=== PATIENT | female | born 1975 | race Caucasian/White ===

== ENCOUNTER 2019-04-29 12:21 | Emergency (ER) | payer BC, SELFPAY ==
[2019-04-29 12:27] VITALS: BP 133/71; PULSE 90; RESP 18; TEMP 36.7; O2SAT 100
[2019-04-29] MEDS: Acetaminophen 500 MG TAB 1000 MG PO (13:12)
[2019-04-29 13:32] LABS: Abs Immature Grans 0.01 k/cumm (0.0-0.09); Absolute Basophil Count 0.03 k/cumm (0.0-0.2); Absolute Eosinophil Count 0.31 k/cumm (0.0-0.7); Absolute Lymphocyte Count 1.81 k/cumm (1.2-3.4); Absolute Monocyte Count 0.68 k/cumm (0.11-0.7); Absolute Neutrophil Count 4.21 k/cumm (1.2-6.7); Basophils % 0.4; Eosinophils % 4.4; HCT 35.7 % (36.0-46.0); HGB 11.7 g/dL (12.0-15.5); Immature Grans % 0.1; Lymphocytes % 25.7; Mean Corp. HGB Concentration 32.8 g/dL (32.0-36.0); Mean Corpuscular Hemoglobin 29.9 pg (27.0-33.0); Mean Corpuscular Volume 91.3 fL (80-95); Mean Platelet Volume 9.3 fL (8.0-11.0); Monocytes % 9.6; Neutrophils % 59.8; Platelet Count 261 x1000/uL (130-400); RBC 3.91 m/cumm (4.00-5.20); RBC Distribution Width 12.7 % (11.7-14.6); White Blood Cell Count 7.05 k/cumm (4.4-10.8)
--- NOTE | 2019-04-29 13:35 | DI.RAD_ITS ---
EXAM: XR CHEST 2V PA LATERAL INDICATION: right back pain r/o pneumonia.. COMPARISON: No exams were available for comparison TECHNIQUE: 2D digital imaging was performed. FINDINGS: Heart size and pulmonary vasculature are within normal limits. The lungs are clear. No effusion or pneumothorax is identified. The bones show no acute abnormality. IMPRESSION: No acute pulmonary process.
[2019-04-29 13:43] LABS: ALT 16 U/L (14-59); AST 10 U/L (15-37); Albumin 3.4 g/dL (3.4-5.0); Alkaline Phosphatase 70 U/L (46-116); Anion Gap 7.8 mmol/L (3-11); BUN 9 mg/dL (7-18); Bilirubin, Total 0.2 mg/dL (0.2-1.0); CO2 28.2 mmol/L (21.0-32.0); CREATININE 0.61 mg/dL (0.55-1.02); Calcium 8.6 mg/dL (8.5-10.1); Chloride 106 mmol/L (98-107); Glucose 94 mg/dL (70-100); Potassium 3.7 mmol/L (3.5-5.1); Sodium 142 mmol/L (136-145); Total Protein 7.4 g/dL (6.4-8.2)
[2019-04-29 13:44] LABS: Bilirubin Negative (Negative); Blood Trace-intact (Negative); Clarity Clear (Clear); Glucose Negative (Negative); Ketones Negative (Negative); Leukocyte Esterase Trace (Negative); Nitrite Negative (Negative); Specific Gravity 1.025 (1.005-1.025); Urobilinogen 0.2 EU/dL (Up TO 0.2); pH 5.5 (5-8)
[2019-04-29 14:01] LABS: D-Dimer 228 ng/mlFEU (<500)
--- NOTE | 2019-04-29 14:10 | DI.VRAD_ITS ---
PROCEDURE INFORMATION: Exam: XR Chest, 2 Views Exam date and time: 04/29/2019 1:33 PM Clinical history: 43 years old, female; Patient HX: Right back pain R/O pneumonia TECHNIQUE: Imaging protocol: XR of the chest Views: 2 views. COMPARISON: No relevant prior studies available. FINDINGS: Lungs: Unremarkable. No mass, infiltrate or consolidation. Pleural space: Unremarkable. No pleural effusion. No pneumothorax. Heart/Mediastinum: Unremarkable. No cardiomegaly. Bones/joints: Unremarkable. IMPRESSION: Negative chest exam. Dictated and Authenticated by: Ariana Rasmussen MD. Ordering:SONALI Nowak MD
[2019-04-29 14:17] LABS: Bacteria Few HPF (Negative); C & S Indicated? No/Sq. Contamination; Casts Negative LPF (Negative); Crystals Few Amorphous HPF (Negative); Epithelial Cells Many HPF (Negative); Mucus Trace (Negative)
--- NOTE | 2019-04-29 15:04 | ED.GENADUL_ITS ---
Discharge Plan Disposition Patient Disposition: HOME Condition: Good Discharge Details Chief Complaint: Nk/Back Pain Clinical Impression: Back pain Primary Care Provider: Kadie Benson ED Provider: She Sifuentes Home Meds and New Rx's Prescriptions: No Action No Known Home Meds RF: 0 Discharge Instructions Instructions: Back Pain (ED) Additional Instructions: Drink plenty of fluids by mouth. Motrin or Tylenol for discomfort if needed. Consider [id number]-[id number] lidocaine 4% patches on the skin for 12 hours then remove for 12 hours before replacing a patch. Rest activities as tolerated. For worsening, increased or new symptoms consider reevaluation sooner in the emergency room. Specifically observe for any difficulty swallowing, difficulty breathing, increasing pain or increase in abdominal pain as discussed. Recheck with your primary care doctor in the next 3 to 5 days. Return if needed sooner Medical Decision Making Is a 43-year-old patient who presents to the ER for complaints of right back pain. Denies specific injury or trauma. Patient denies associated difficult to breathing shortness breath or wheezing. Patient denies ill or systemic symptoms associated specifically no nausea, vomiting diarrhea, fevers or chills. Patient eating and drink without difficulty. Patient does report pain in her right back is worse with range of motion, coughing, sneezing and swallowing. Patient has been eating without difficulty or abdominal pain. No changes in bowels. Patient is concerned as she is due to travel internationally and was concerned with onset of pain wanted evaluated prior to travel. Patient does report frequent travel and flights. Patient is not a smoker. Patient denies any dys pnea on exertion or shortness of breath but is concerned with the possibility of blood clots. On exam patient has reproducible back pain with palpation along the musculature although does also have right CVA tenderness. Denies urinary symptoms associated. On abdominal exam she does have mild right upper quadrant tenderness as well as mild suprapubic tenderness but no sharp pain with palpation. She did not note abdominal pain prior to arrival. Has no peritoneal signs and her abdomen. Plan of care includes chest x-ray to be sure there is no identifiable pneumonia, d-dimer to rule out her concern of pulmonary embolism as well as urinalysis due to the CVA tenderness. It is difficult for me to connect patient's back pain to difficulty swallowing however her pharynx appears normal her voice is normal she has no significant voice change or difficulty eating and drinking. We discussed this at length and she does not feel imaging studies are warranted at this time would prefer close observation. Patient's chest x-ray is unremarkable for any identifiable infection. D-dimer negative. Urinalysis is somewhat contaminated mild leukocyte esterase tracely positive with no associated nitrates. Discussed with patient and she would prefer urine culture versus antibiotic treatment at this time. Patient's vital signs remained stable throughout her course of treatment and evaluation in the emergency room. Given patient's complaints I feel is most reasonable to closely observe her and encouraged conservative treatments at this time. Patient agrees with plan of care. Does not feel she needs CAT scan imaging at this time which I agree with. HPI General Date/Time Provider Initiated Documentation: 04/29/19 12:40 . HPI Narrative: 43-year-old patient presents for complaints of back pain on the right behind her shoulder. Patient reports no specific injury or trauma. Patient denies any cough or difficulty breathing. Patient does report pain is worse with range of motion, deep breathing, coughing. Patient denies any dyspnea on exertion. Patient denies abdominal pain associated. No associated nausea, vomiting or diarrhea. Eating and drink without difficulty. Patient does report mild pain in her back when swallowing. No nasal congestion or upper respiratory symptoms recently. Patient does report she is concerned as she is due to get on a long flight in the next few days and was concerned as she has done lots of flying recently lots of short flights connected. Patient was somewhat concerned with the possibility of a blood clot. Denies any swelling in her legs or calf pain recently. No radiation of her back pain Related Data Home Medications Medication Instructions Recorded Confirmed Unknown [No Known Home Meds] 04/29/19 04/29/19 Allergies Allergy/AdvReac Type Severity Reaction Status Date / Time amoxicillin trihydrate Allergy Severe Hives Unverified 04/29/19 12:30 [From Augmentin] ciprofloxacin [From Cipro] Allergy Severe Hives Unverified 04/29/19 12:30 ciprofloxacin HCl Allergy Severe Hives Unverified 04/29/19 12:30 [From Cipro] potassium clavulanate Allergy Severe Hives Unverified 04/29/19 12:30 [From Augmentin] cefaclor [From Ceclor] Allergy Intermediate Hives Unverified 04/29/19 12:30 walnuts Allergy Severe Nausea Uncoded 04/29/19 12:30 General Stated Complaint: Nk/Back Pain PEREZ: 4 Review of Systems All systems reviewed & are unremarkable except as noted in HPI and below Constitutional Constitutional: Denies chills, Denies fatigue, Denies fever(s) and Denies headache(s) ENT Ears, Nose, Mouth, and Throat: Denies headache(s), Denies neck pain and Denies throat swelling Cardiovascular Cardiovascular: Denies chest pain, Denies chest pain with activity, Denies leg edema, Denies radiating jaw, neck or arm pain and Denies dyspnea on exertion Respiratory Respiratory: Denies cough, Denies dyspnea on exertion and Denies wheezing Gastrointestinal Gastrointestinal: Denies abdominal pain, Denies nausea and Denies vomiting Musculoskeletal Musculoskeletal: Reports back pain, Denies limited range of motion, Denies neck pain and Denies radiating pain into limb Neurologic Neurologic: Denies headache(s) Endocrine Endocrine: Denies fatigue Allergic/Immunologic Allergic/Immunologic: Denies throat swelling and Denies wheezing [facility] Social History Smoking/Tobacco Use Status: Never Alcohol Intake: current Alcohol Intake frequency: holidays/special occasions only Drug use: Never Substance use type: does not use Do you feel safe at home: Yes Do you feel safe in your relationship?: Yes Exam Narrative Exam Narrative: CONST: Healthy appearing patient, in no acute distress. Well hydrated. Alert and alert. HENMT: Head nomocephalic, normal to inspection. Atraumatic. Hearing grossly normal. No pharyngeal erythema. No uvula swelling. Uvula midline. EYES: General normal appearance. Alignment normal. Eyelids normal. Conjunctiva normal. NECK: Normal visual inspection. FROM. Trachea midline. No Midline tenderness. No cervical lymphadenopathy present CHEST: Normal insepection of the chest. No palpable chest pain with palpation RESP: Normal respiratory effort. Speaking full sentences. No cough. No audible wheezing. No retractions. Breath sounds are equal and full bilaterally. No rales, rhonchi or wheezing present. CARDIO: No JVD. Regular rate and rhythm. No murmurs or rubs MUSCULOSKELETAL: Normal Gait. FROM of all extremities. Back: No midline tenderness through the cervical, thoracic and lumbar spine. No obvious bruising. Mild pain with palpation along the right paraspinal area and subscapular area. This does somewhat reproduce patient's pain but not as sharply. Mild right CVA tenderness with palpation. No left CVA tenderness. GI: Soft, minimal right upper quadrant tenderness palpation. No epigastric pain with palpation. Mild suprapubic pain with palpation. No peritoneal signs, rebound or guarding. SKIN: Normal. Dry. No rashes. NEURO: Alert and awake. Speech clear. PSYCH: Normal affect. Cooperative. Course Vital Signs Vital signs: Vital Signs Temperature 36.7 C 04/29/19 12:27 Pulse 90 04/29/19 12:27 Respiratory Rate 18 04/29/19 12:27 Blood Pressure 133/71 04/29/19 12:27 Pulse Oximetry 100 04/29/19 12:27 Temperature 36.7 C 04/29/19 12:27 Temperature Source Temporal Artery Scan 04/29/19 12:27 Pulse 90 04/29/19 12:27 Respiratory Rate 18 04/29/19 12:27 Respiratory Effort Non-Labored 04/29/19 12:27 Blood Pressure 133/71 04/29/19 12:27 Pulse Oximetry 100 04/29/19 12:27 Oxygen Delivery Method Room Air 04/29/19 12:27 Oxygen Flow Rate 0 04/29/19 12:27 Pain Level 4 04/29/19 12:27 Lab/Test Results Lab/Test Results: 04/29/19 15:00 Urine - Clean Catch Urine Culture - Pending Laboratory Tests Range/Units 04/29/19 04/29/19 04/29/19 13:25 13:25 13:25 WBC (4.4-10.8) k/cumm 7.05 RBC (4.00-5.20) m/cumm 3.91 L Hgb (12.0-15.5) g/dL 11.7 L Hct (36.0-46.0) % 35.7 L MCV (80-95) fL 91.3 MCH (27.0-33.0) pg 29.9 MCHC (32.0-36.0) g/dL 32.8 RDW (11.7-14.6) % 12.7 Plt Count (130-400) x1000/uL 261 MPV (8.0-11.0) fL 9.3 Immature Gran % 0.1 Neutrophils % 59.8 Lymphocytes % 25.7 Monocytes % 9.6 Eosinophils % 4.4 Basophils % 0.4 Absolute Neutrophils (1.2-6.7) k/cumm 4.21 Absolute Lymphocytes (1.2-3.4) k/cumm 1.81 Absolute Monocytes (0.11-0.7) k/cumm 0.68 Absolute Eosinophils (0.0-0.7) k/cumm 0.31 Absolute Basophils (0.0-0.2) k/cumm 0.03 D-Dimer (<500) ng/mlFEU 228 Sodium (136-145) mmol/L 142 Potassium (3.5-5.1) mmol/L 3.7 Chloride (98-107) mmol/L 106 Carbon Dioxide (21.0-32.0) mmol/L 28.2 Anion Gap (3-11) mmol/L 7.8 BUN (7-18) mg/dL 9 Creatinine (0.55-1.02) mg/dL 0.61 Estimated GFR/1.73 m2 (mL/min/1.73m2) >= 60.00 Glucose (70-100) mg/dL 94 Calcium (8.5-10.1) mg/dL 8.6 Total Bilirubin (0.2-1.0) mg/dL 0.2 AST (15-37) U/L 10 L ALT (14-59) U/L 16 Alkaline Phosphatase (46-116) U/L 70 Total Protein (6.4-8.2) g/dL 7.4 Albumin (3.4-5.0) g/dL 3.4 Urine Color (Yellow) Urine Clarity (Clear) Urine pH (5-8) Ur Specific [place] (1.005-1.025) Urine Protein (Negative) mg/dL Urine Ketones (Negative) mg/dL Urine Blood (Negative) Urine Nitrite (Negative) Urine Bilirubin (Negative) Urine Urobilinogen (Up TO 0.2) EU/dL Ur Leukocyte Esterase (Negative) Urine RBC (0-2) Urine WBC (0-5) HPF Ur Epithelial Cells (Negative) HPF Urine Crystals (Negative) HPF Urine Bacteria (Negative) HPF Urine Casts (Negative) LPF Urine Mucus (Negative) Ur Culture Indicated? Urine Glucose (Negative) mg/dL Range/Units 04/29/19 13:35 WBC (4.4-10.8) k/cumm RBC (4.00-5.20) m/cumm Hgb (12.0-15.5) g/dL Hct (36.0-46.0) % MCV (80-95) fL MCH (27.0-33.0) pg MCHC (32.0-36.0) g/dL RDW (11.7-14.6) % Plt Count (130-400) x1000/uL MPV (8.0-11.0) fL Immature Gran % Neutrophils % Lymphocytes % Monocytes % Eosinophils % Basophils % Absolute Neutrophils (1.2-6.7) k/cumm Absolute Lymphocytes (1.2-3.4) k/cumm Absolute Monocytes (0.11-0.7) k/cumm Absolute Eosinophils (0.0-0.7) k/cumm Absolute Basophils (0.0-0.2) k/cumm D-Dimer (<500) ng/mlFEU Sodium (136-145) mmol/L Potassium (3.5-5.1) mmol/L Chloride (98-107) mmol/L Carbon Dioxide (21.0-32.0) mmol/L Anion Gap (3-11) mmol/L BUN (7-18) mg/dL Creatinine (0.55-1.02) mg/dL Estimated GFR/1.73 m2 (mL/min/1.73m2) Glucose (70-100) mg/dL Calcium (8.5-10.1) mg/dL Total Bilirubin (0.2-1.0) mg/dL AST (15-37) U/L ALT (14-59) U/L Alkaline Phosphatase (46-116) U/L Total Protein (6.4-8.2) g/dL Albumin (3.4-5.0) g/dL Urine Color (Yellow) Yellow Urine Clarity (Clear) Clear Urine pH (5-8) 5.5 Ur Specific [place] (1.005-1.025) 1.025 Urine Protein (Negative) mg/dL Trace H Urine Ketones (Negative) mg/dL Negative Urine Blood (Negative) Trace-intact H Urine Nitrite (Negative) Negative Urine Bilirubin (Negative) Negative Urine Urobilinogen (Up TO 0.2) EU/dL 0.2 Ur Leukocyte Esterase (Negative) Trace H Urine RBC (0-2) 3-5 H Urine WBC (0-5) HPF 3-5 Ur Epithelial Cells (Negative) HPF Many Urine Crystals (Negative) HPF Few amorphous Urine Bacteria (Negative) HPF Few Urine Casts (Negative) LPF Negative Urine Mucus (Negative) Trace Ur Culture Indicated? No/sq. contamination Urine Glucose (Negative) mg/dL Negative
== END 2019-04-29 16:25 | disposition home or self-care (01) ==
PROVIDERS: Emergency Provider Physician Assistant; PCP Nurse Practitioner Family
DX: M54.6 Pain in thoracic spine (principal)
CPT/HCPCS: 36415; 80053; 99284; 71046; 81003; 81015; 85025; 85379; 87086